=== PATIENT | female | born 1950 | race Caucasian/White ===

== ENCOUNTER 2016-07-20 01:13 | Emergency (ER) | payer OTHER ==
[~2016-07-20] VITALS: Ht 162.6 cm; Wt 65.3 kg
[~2016-07-20 01:13] MED LIST: ADVAIR HFA120 INHALA IH; ASPIR 8181 M1 PO; CEFDINIR300 MG PO; CLOPIDOGREL75 MG PO; DOXYCYCLINE HY100 MG PO; ESCITALOPRAM OX20 MG PO; KLONOPIN0.5 M1 PO; NICORELIEF2 MG BC; NICORETTE4 MG BC; OXYCODONE HCL30 MG PO; OXYCONTIN80 MG PO; PREDNISONE10 MG PO; SPIRIVA1 INHALATI IH; VENTOLIN HFA18 GM IH; tylenol
[2016-07-20] MEDS ORDERED: KEFLEX500 MG PO (03:51)
[2016-07-20 04:16] VITALS: BP 142/86
== END 2016-07-20 04:18 | disposition home or self-care (01) ==
LOC: EXP 01:13 → EME 01:13 → EXP 04:18
PROC: 2Y41X5Z Packing of Nasal Region using Packing Material (ICD-10-PCS; principal; 2016-07-20)
DX: R04.0 Epistaxis (principal); I25.2 Old myocardial infarction; Z86.73 Personal history of transient ischemic attack (TIA), and cerebral infarction without residual deficits; Z79.01 Long term (current) use of anticoagulants; Z95.5 Presence of coronary angioplasty implant and graft
CPT/HCPCS: 99281; 99284

== ENCOUNTER 2016-11-16 19:44 | Inpatient (IN) | payer OTHER ==
[~2016-11-16] VITALS: Ht 165.1 cm; Wt 67.0 kg
[~2016-11-16 19:44] MED LIST changes: +KEFLEX500 MG PO
[2016-11-16 20:18] LABS: HEMATOCRIT 41.7 % (36.0-46.0); MCH 25.2 PG (29.0-34.0); MCHC 30.9 G/DL (30.0-36.0); MCV 81.6 FL (83-99); PLATELET COUNT 207 K/uL (156-360); RBC DIS.WIDTH-CV 13.5 % (11.8-14.6); RBC DIS.WIDTH-SD 39.9 % (39-53); RED BLOOD COUNT 5.11 M/uL (3.80-5.20); WHITE BLOOD COUNT 13.5 K/uL (4.1-10.2)
[2016-11-16 20:26] LABS: CHLORIDE 102 mEq/L (99-109); SODIUM 138 mEq/L (136-147)
[2016-11-16 20:28] LABS: GLUCOSE 130 mg/dL (70-99)
[2016-11-16 20:29] LABS: ANION GAP 15 MEQ/L (2-14); D-DIMER ELISA 0.69 mg/L FEU (< 0.57); PROTHROMBIN TIME 10.5 (9.2-11.2); PTT 25.9 (25-32)
[2016-11-16 20:32] LABS: GFR ESTIMATE (CALCULATED) > 59 mL/min/
[2016-11-16 20:33] LABS: UREA NITROGEN (BUN) 7 mg/dL (9-23)
[2016-11-16 20:38] LABS: TROP-I INTERPRETATION NEGATIVE; TROPONIN-I < 0.01 ng/mL (0.0-0.30)
[2016-11-16] MEDS ORDERED: OXYMORPHONE HCL30 MG PO ×2 (22:01→22:02)
[2016-11-16] MEDS ORDERED: ZOFRAN4 MG PO (22:02)
[2016-11-16] MEDS ORDERED: OPANA ER5 MG PO (22:02)
[2016-11-16 23:50] VITALS: BP 130/74
[2016-11-17] VITALS (7 sets, daily range): BP systolic 91–146; BP diastolic 54–67
[2016-11-17 01:57] LABS: TROP-I INTERPRETATION NEGATIVE; TROPONIN-I 0.03 ng/mL (0.0-0.30)
[2016-11-17 07:48] LABS: HEMATOCRIT 37.4 % (36.0-46.0); MCH 26.1 PG (29.0-34.0); MCHC 31.3 G/DL (30.0-36.0); MCV 83.5 FL (83-99); MEAN PLAT.VOLUME 9.9 uM^3 (9.5-12.4); PLATELET COUNT 228 K/uL (156-360); RBC DIS.WIDTH-CV 13.7 % (11.8-14.6); RBC DIS.WIDTH-SD 41.4 % (39-53); RED BLOOD COUNT 4.48 M/uL (3.80-5.20)
[2016-11-17 08:11] LABS: TROP-I INTERPRETATION NEGATIVE; TROPONIN-I 0.02 ng/mL (0.0-0.30)
[2016-11-17 08:20] LABS: ANION GAP 9 MEQ/L (2-14); CHLORIDE 99 MEQ/L (99-109); GFR ESTIMATE (CALCULATED) > 59 mL/min/; GLUCOSE 140 mg/dL (70-99); HDL CHOLESTEROL 49 MG/DL (Desirable>=50); LDL CHOLESTEROL 96 mg/dL (Desirable<100); NON-HDL CHOLESTEROL 111 mg/dL (Desirable<160); POTASSIUM 4.2 MEQ/L (3.7-5.4); SAMPLE HEMOLYSIS CHECK 0; SAMPLE ICTERIC CHECK 0; SAMPLE LIPEMIA CHECK 0; SODIUM 138 MEQ/L (136-147); TOTAL CHOLESTEROL 160 mg/dL (Desirable<200); TRIGLYCERIDES 75 MG/DL (Normal: <150); UREA NITROGEN (BUN) 9 mg/dL (9-23)
[2016-11-18 03:45] VITALS: BP 110/64
[2016-11-18 05:59] LABS: EOSINOPHIL (%) 0 % (0-5); HEMATOCRIT 34.2 % (36.0-46.0); IMMATURE GRANULOCYTE (%) 0.7 % (0.0-0.7); IMMATURE GRANULOCYTE COUNT 0.1 K/uL; LYMPHOCYTE COUNT 2.6 K/uL (1.0-2.8); MCH 25.3 PG (29.0-34.0); MCHC 30.4 G/DL (30.0-36.0); MCV 83.2 FL (83-99); MEAN PLAT.VOLUME 9.6 uM^3 (9.5-12.4); MONOCYTE (%) 5.7 % (3-12); MONOCYTE COUNT 0.6 K/uL (0-0.8); PLATELET COUNT 208 K/uL (156-360); RBC DIS.WIDTH-CV 13.7 % (11.8-14.6); RBC DIS.WIDTH-SD 41.6 % (39-53); RED BLOOD COUNT 4.11 M/uL (3.80-5.20); WHITE BLOOD COUNT 10.2 K/uL (4.1-10.2)
[2016-11-18 06:52] LABS: CHLORIDE 108 mEq/L (99-109); POTASSIUM 4.1 mEq/L (3.7-5.4); SODIUM 142 mEq/L (136-147)
[2016-11-18 06:54] LABS: GLUCOSE 130 mg/dL (70-99)
[2016-11-18 06:55] LABS: ANION GAP 9 MEQ/L (2-14)
[2016-11-18 06:57] LABS: GFR ESTIMATE (CALCULATED) > 59 mL/min/
[2016-11-18 06:58] LABS: UREA NITROGEN (BUN) 14 mg/dL (9-23)
[2016-11-18 07:22] VITALS: BP 155/68
[2016-11-18 07:38] LABS: POINT-OF-CARE METER ID UU14188625
[2016-11-18 09:06] LABS: INTERNAL CONTROL VALID? YES
[2016-11-18 11:10] VITALS: BP 160/68
[2016-11-18 11:35] LABS: POINT-OF-CARE METER ID UU14174225
[2016-11-18 15:51] VITALS: BP 146/63
[2016-11-18 17:45] LABS: POINT-OF-CARE METER ID UU14188625
[2016-11-18 19:55] VITALS: BP 153/70
[2016-11-18 23:25] VITALS: BP 184/79
[2016-11-19 03:23] VITALS: BP 177/78
[2016-11-19 07:34] VITALS: BP 173/79
[2016-11-19 07:46] LABS: EOSINOPHIL (%) 0.5 % (0-5); EOSINOPHIL COUNT 0.1 K/uL (0-0.3); HEMATOCRIT 34.2 % (36.0-46.0); IMMATURE GRANULOCYTE (%) 0.3 % (0.0-0.7); INSTRUMENT ABS NEUTROPHIL CT 4.8 K/uL; LYMPHOCYTE COUNT 4.2 K/uL (1.0-2.8); MCH 25.4 PG (29.0-34.0); MCHC 30.4 G/DL (30.0-36.0); MCV 83.6 FL (83-99); MEAN PLAT.VOLUME 9.8 uM^3 (9.5-12.4); MONOCYTE COUNT 0.7 K/uL (0-0.8); NEUTROPHIL COUNT 4.8 K/uL (1.8-6.4); PLATELET COUNT 239 K/uL (156-360); RBC DIS.WIDTH-CV 13.7 % (11.8-14.6); RBC DIS.WIDTH-SD 41.8 % (39-53); RED BLOOD COUNT 4.09 M/uL (3.80-5.20); WHITE BLOOD COUNT 9.8 K/uL (4.1-10.2)
[2016-11-19 08:40] LABS: ANION GAP 12 MEQ/L (2-14); CHLORIDE 104 MEQ/L (99-109); GFR ESTIMATE (CALCULATED) > 59 mL/min/; POTASSIUM 3.9 MEQ/L (3.7-5.4); SAMPLE HEMOLYSIS CHECK 0; SAMPLE ICTERIC CHECK 0; SAMPLE LIPEMIA CHECK 0; SODIUM 143 MEQ/L (136-147); UREA NITROGEN (BUN) 14 mg/dL (9-23)
[2016-11-19 08:41] LABS: GLUCOSE 81 mg/dL (70-99)
[2016-11-19 10:54] VITALS: BP 136/75
[2016-11-19] MEDS ORDERED: CEFTIN500 MG PO (12:51)
[2016-11-19] MEDS ORDERED: PROAIR RESPICL90 MCG IH (12:51)
[2016-11-19] MEDS ORDERED: ASPIR-LOW81 MG PO (12:52)
[2016-11-19] MEDS ORDERED: PRAVASTATIN SOD80 MG PO (12:52)
[2016-11-19] MEDS ORDERED: AMLODIPINE BESYL5 MG PO (12:52)
[2016-11-19] MEDS ORDERED: SPIRIVA1 INHALATI IH (12:53)
[2016-11-19] MEDS ORDERED: PREDNISONE20 MG PO (12:53)
== END 2016-11-19 13:48 | disposition home or self-care (01) | DRG 871 ==
LOC: EME 19:44 → EDOF 21:29 → 5SOUTH 21:29
PROVIDERS: Emergency Medicine; Hospitalist; Internal Medicine
DX: A41.9 Sepsis, unspecified organism (principal); J44.1 Chronic obstructive pulmonary disease with (acute) exacerbation; J18.9 Pneumonia, unspecified organism; Z99.81 Dependence on supplemental oxygen; I44.7 Left bundle-branch block, unspecified; F41.9 Anxiety disorder, unspecified; R07.9 Chest pain, unspecified; I25.10 Atherosclerotic heart disease of native coronary artery without angina pectoris; Z86.73 Personal history of transient ischemic attack (TIA), and cerebral infarction without residual deficits; Z87.442 Personal history of urinary calculi; I25.2 Old myocardial infarction; Z87.891 Personal history of nicotine dependence; Z95.5 Presence of coronary angioplasty implant and graft; E78.5 Hyperlipidemia, unspecified
CPT/HCPCS: 71010; 71275; 80048; 80061; 82948; 83605; 84484; 85025; 85027; 85379; 85610; 85730; 87040; 87070; 87205; 87449; 93005; 93306; 94640; 94799; 99202; 99281; 99285; J0696; J1644; J2920; J3475; J7030; J7050; J7512

== ENCOUNTER 2017-01-22 03:29 | Inpatient (IN) | payer OTHER ==
[~2017-01-22] VITALS: Ht 167.6 cm; Wt 63.4 kg
[~2017-01-22 03:29] MED LIST changes: +AMLODIPINE BESYL5 MG PO; +ASPIR-LOW81 MG PO; +CEFTIN500 MG PO; +OPANA IR5 MG PO; +OXYMORPHONE HCL30 MG PO; +PRAVASTATIN SOD80 MG PO; +PREDNISONE20 MG PO; +PROAIR RESPICL90 MCG IH; +ZOFRAN4 MG PO
[2017-01-22 04:27] LABS: BASOPHIL COUNT 0.1 K/uL (0-0.1); EOSINOPHIL (%) 0.9 % (0-5); EOSINOPHIL COUNT 0.1 K/uL (0-0.3); HEMATOCRIT 44.8 % (36.0-46.0); IMMATURE GRANULOCYTE (%) 0.4 % (0.0-0.7); INSTRUMENT ABS NEUTROPHIL CT 8.2 K/uL; LYMPHOCYTE COUNT 2.2 K/uL (1.0-2.8); MCH 25.3 PG (29.0-34.0); MCHC 30.6 G/DL (30.0-36.0); MCV 82.7 FL (83-99); MEAN PLAT.VOLUME 9.3 uM^3 (9.5-12.4); MONOCYTE (%) 6.2 % (3-12); MONOCYTE COUNT 0.7 K/uL (0-0.8); NEUTROPHIL (%) 72.5 % (45-76); NEUTROPHIL COUNT 8.2 K/uL (1.8-6.4); PLATELET COUNT 184 K/uL (156-360); RBC DIS.WIDTH-CV 14.6 % (11.8-14.6); RBC DIS.WIDTH-SD 44.4 % (39-53); RED BLOOD COUNT 5.42 M/uL (3.80-5.20); WHITE BLOOD COUNT 11.2 K/uL (4.1-10.2)
[2017-01-22 04:39] LABS: CHLORIDE 104 mEq/L (99-109); POTASSIUM 3.4 mEq/L (3.7-5.4); SODIUM 143 mEq/L (136-147)
[2017-01-22 04:41] LABS: GLUCOSE 155 mg/dL (70-99)
[2017-01-22 04:42] LABS: ANION GAP 13 MEQ/L (2-14)
[2017-01-22 04:43] LABS: TOTAL BILIRUBIN 0.4 mg/dL (0.0-1.0)
[2017-01-22 04:44] LABS: ALKALINE PHOSPHATASE 90 IU/L (3-129)
[2017-01-22 04:45] LABS: GFR ESTIMATE (CALCULATED) > 59 mL/min/
[2017-01-22 04:46] LABS: UREA NITROGEN (BUN) 10 mg/dL (9-23)
[2017-01-22 04:54] LABS: TROP-I INTERPRETATION NEGATIVE; TROPONIN-I 0.04 ng/mL (0.0-0.30)
[2017-01-22 07:30] LABS: ADD MIUA? NO; BILIRUBIN NEGATIVE; BLOOD NEGATIVE; COLOR STRAW ((YELLOW)); GLUCOSE (STRIP) 50; KETONES NEGATIVE; LEUKOCYTES NEGATIVE; NITRITE NEGATIVE; PROTEIN (STRIP) NEGATIVE; SPECIFIC GRAVITY 1.005 (1.000-1.030); UCUL ADDED? NO; UROBILINOGEN 0.2 MG/DL (0.2-1.0)
[2017-01-22 10:46] VITALS: BP 128/59
[2017-01-22 11:45] VITALS: BP 178/67
[2017-01-22 12:03] LABS: BASE EXCESS -4.5 mEq/L (-3 to +3); BICARBONATE 20.2 mEq/L (22-26); CARBOXY HGB 1.7 % (0-5); METHEMOGLOBIN 1.7 % (0-1.5); PO2 48 mm Hg (80-100); pH 7.37 (7.35-7.45)
[2017-01-22 12:05] LABS: COMMENTS - BLOOD GASES C+; PCO2 35 mm Hg (35-45); SITE RR
[2017-01-22 12:06] LABS: DEVICE RA; TOTAL RESP RATE 22 resp/min
[2017-01-22 12:31] LABS: HEMATOCRIT 41.2 % (36.0-46.0); MCH 25.6 PG (29.0-34.0); MCHC 30.1 G/DL (30.0-36.0); MCV 85.1 FL (83-99); MEAN PLAT.VOLUME 9.9 uM^3 (9.5-12.4); PLATELET COUNT 185 K/uL (156-360); RBC DIS.WIDTH-CV 14.7 % (11.8-14.6); RBC DIS.WIDTH-SD 45.9 % (39-53); RED BLOOD COUNT 4.84 M/uL (3.80-5.20); WHITE BLOOD COUNT 2.8 K/uL (4.1-10.2)
[2017-01-22 13:00] LABS: INFLUENZA A VIRAL ANTIGEN NEGATIVE; INFLUENZA B VIRAL ANTIGEN NEGATIVE
[2017-01-22 13:21] LABS: TROP-I INTERPRETATION NEGATIVE; TROPONIN-I 0.08 ng/mL (0.0-0.30)
[2017-01-22 13:25] LABS: ANION GAP 14 MEQ/L (2-14); CHLORIDE 108 MEQ/L (99-109); GFR ESTIMATE (CALCULATED) > 59 mL/min/; GLUCOSE 131 mg/dL (70-99); POTASSIUM 3.6 MEQ/L (3.7-5.4); SAMPLE HEMOLYSIS CHECK 0; SAMPLE ICTERIC CHECK 0; SAMPLE LIPEMIA CHECK 0; SODIUM 140 MEQ/L (136-147); UREA NITROGEN (BUN) 8 mg/dL (9-23)
[2017-01-22 13:46] LABS: METH RESISTANT S AUREUS PCR NEGATIVE (NEGATIVE)
[2017-01-22 13:53] LABS: PROBE CHECK PASS; SPECIMEN PROCESSING CONTROL PASS
[2017-01-22 14:01] VITALS: BP 129/65
[2017-01-22 15:17] VITALS: BP 105/60
[2017-01-22] MEDS ORDERED: OPANA ER5 MG PO (15:19)
[2017-01-22] MEDS ORDERED: LIPITOR10 MG PO (15:20)
[2017-01-22] MEDS ORDERED: ATARAX,VISTARIL25 MG PO (15:22)
[2017-01-22 19:20] VITALS: BP 137/65
[2017-01-23 00:15] VITALS: BP 142/67
[2017-01-23 04:20] VITALS: BP 160/76
[2017-01-23 05:19] LABS: CHLORIDE 108 mEq/L (99-109); SODIUM 136 mEq/L (136-147)
[2017-01-23 05:20] LABS: GLUCOSE 153 mg/dL (70-99)
[2017-01-23 05:22] LABS: ANION GAP 7 MEQ/L (2-14)
[2017-01-23 05:24] LABS: GFR ESTIMATE (CALCULATED) > 59 mL/min/
[2017-01-23 05:25] LABS: UREA NITROGEN (BUN) 9 mg/dL (9-23)
[2017-01-23 05:45] LABS: POTASSIUM 4.4 mEq/L (3.7-5.4)
[2017-01-23 06:44] LABS: HEMATOCRIT 32.3 % (36.0-46.0); MCH 25.8 PG (29.0-34.0); MCV 83.2 FL (83-99); MEAN PLAT.VOLUME 9.8 uM^3 (9.5-12.4); PLATELET COUNT 156 K/uL (156-360); RBC DIS.WIDTH-CV 14.9 % (11.8-14.6); RBC DIS.WIDTH-SD 45.4 % (39-53); RED BLOOD COUNT 3.88 M/uL (3.80-5.20); WHITE BLOOD COUNT 11.4 K/uL (4.1-10.2)
[2017-01-23 07:57] VITALS: BP 136/74
[2017-01-23 10:06] LABS: INTERNAL CONTROL VALID? YES
[2017-01-23 11:43] VITALS: BP 135/70
[2017-01-23 14:57] VITALS: BP 172/82
[2017-01-23 19:30] VITALS: BP 146/80
[2017-01-24 00:05] VITALS: BP 140/80
[2017-01-24 04:10] VITALS: BP 160/82
[2017-01-24 05:43] LABS: HEMATOCRIT 35.5 % (36.0-46.0); MCH 26.1 PG (29.0-34.0); MCHC 31.3 G/DL (30.0-36.0); MCV 83.3 FL (83-99); MEAN PLAT.VOLUME 9.9 uM^3 (9.5-12.4); PLATELET COUNT 197 K/uL (156-360); RBC DIS.WIDTH-CV 15.1 % (11.8-14.6); RED BLOOD COUNT 4.26 M/uL (3.80-5.20); WHITE BLOOD COUNT 11.2 K/uL (4.1-10.2)
[2017-01-24 06:40] LABS: ANION GAP 9 MEQ/L (2-14); CHLORIDE 104 MEQ/L (99-109); GFR ESTIMATE (CALCULATED) > 59 mL/min/; GLUCOSE 86 mg/dL (70-99); POTASSIUM 3.6 MEQ/L (3.7-5.4); SAMPLE HEMOLYSIS CHECK 0; SAMPLE ICTERIC CHECK 0; SAMPLE LIPEMIA CHECK 0; SODIUM 143 MEQ/L (136-147); UREA NITROGEN (BUN) 11 mg/dL (9-23)
[2017-01-24 07:48] VITALS: BP 137/78
[2017-01-24 12:50] VITALS: BP 124/58
[2017-01-24 16:50] VITALS: BP 179/90
[2017-01-24 19:20] VITALS: BP 148/70
[2017-01-25 00:15] VITALS: BP 150/82
[2017-01-25 04:00] VITALS: BP 148/80
[2017-01-25 08:18] VITALS: BP 100/62; BP 170/80
[2017-01-25] MEDS ORDERED: DOCUSATE SODIU100 MG PO (11:50)
[2017-01-25] MEDS ORDERED: AUGMENTIN875 MG PO (11:50)
[2017-01-25] MEDS ORDERED: PREDNISONE5 MG PO (11:50)
[2017-01-25] MEDS ORDERED: MUCINEX600 MG PO (11:50)
[2017-01-25 12:03] VITALS: BP 128/72
[2017-01-25 20:26] LABS: M. pneumoniae Ab, IgG 1.28 (<=0.90)
== END 2017-01-25 15:52 | disposition home health service (06) | DRG 871 ==
LOC: EME → EDBD 03:29 → EDOF 07:24 → 5SOUTH 07:24 → 4EAST 07:24 → ENRESERV 07:26 → EDOF 07:54 → ENRESERV 08:00 → 5SOUTH 09:20 → ENRESERV 12:26 → 4EAST 13:33
PROVIDERS: Emergency Medicine; Internal Medicine; Physician Assistant
DX: A41.9 Sepsis, unspecified organism (principal); J18.9 Pneumonia, unspecified organism; J96.01 Acute respiratory failure with hypoxia; J44.0 Chronic obstructive pulmonary disease with (acute) lower respiratory infection; J44.1 Chronic obstructive pulmonary disease with (acute) exacerbation; E87.2 Acidosis; G89.4 Chronic pain syndrome; Z87.891 Personal history of nicotine dependence; I25.10 Atherosclerotic heart disease of native coronary artery without angina pectoris; Z95.5 Presence of coronary angioplasty implant and graft; Z99.81 Dependence on supplemental oxygen; Z87.442 Personal history of urinary calculi; Z87.01 Personal history of pneumonia (recurrent); Z86.73 Personal history of transient ischemic attack (TIA), and cerebral infarction without residual deficits; Z79.82 Long term (current) use of aspirin; I25.2 Old myocardial infarction
CPT/HCPCS: 36600; 71010; 71275; 80048; 80048 91; 80053; 81003; 82803; 83605; 83880; 84484; 85025; 85027; 85379; 86738 90; 87040; 87081; 87086; 87449; 87502; 87641; 93005; 94640; 94640 76; 94799; 99202; 99281; 99285; J0456; J0692; J0696; J1650; J2543; J2920; J3370; J7030; J7040; J7050; J7120; J7512

== ENCOUNTER → 2017-04-05 | Outpatient (CLI) | payer OTHER ==
[~2017-04-05] VITALS: Ht 162.6 cm; Wt 68.0 kg
[~2017-04-05] MED LIST changes: +ATARAX,VISTARIL25 MG PO; +AUGMENTIN875 MG PO; +DOCUSATE SODIU100 MG PO; +LIPITOR10 MG PO; +MUCINEX600 MG PO; +OPANA ER5 MG PO; +PREDNISONE5 MG PO
== END | disposition home or self-care (01) ==
LOC: AMB 12:30
PROC: 0DJ0XZZ Inspection of Upper Intestinal Tract, External Approach (ICD-10-PCS; principal; 2017-04-05)
DX: R93.9 Diagnostic imaging inconclusive due to excess body fat of patient (principal); Z53.09 Procedure and treatment not carried out because of other contraindication; Z87.01 Personal history of pneumonia (recurrent)
CPT/HCPCS: 99213; J0330; J2250; J2405; J3010

== ENCOUNTER → 2017-04-06 | Outpatient (CLI) | payer OTHER ==
[~2017-04-06] VITALS: Ht 162.6 cm; Wt 68.0 kg
== END | disposition home or self-care (01) ==
LOC: AMB 11:15
PROC: 0DJ08ZZ Inspection of Upper Intestinal Tract, Via Natural or Artificial Opening Endoscopic (ICD-10-PCS; principal; 2017-04-06)
DX: R93.3 Abnormal findings on diagnostic imaging of other parts of digestive tract (principal); R59.0 Localized enlarged lymph nodes; Z86.19 Personal history of other infectious and parasitic diseases; Z53.09 Procedure and treatment not carried out because of other contraindication; Z79.02 Long term (current) use of antithrombotics/antiplatelets; Z79.82 Long term (current) use of aspirin; Z87.891 Personal history of nicotine dependence; R13.10 Dysphagia, unspecified; K21.9 Gastro-esophageal reflux disease without esophagitis; K62.5 Hemorrhage of anus and rectum; J44.9 Chronic obstructive pulmonary disease, unspecified; Z87.01 Personal history of pneumonia (recurrent); I25.10 Atherosclerotic heart disease of native coronary artery without angina pectoris; Z86.73 Personal history of transient ischemic attack (TIA), and cerebral infarction without residual deficits; G89.29 Other chronic pain; Z79.891 Long term (current) use of opiate analgesic; F32.9 Major depressive disorder, single episode, unspecified; Z87.442 Personal history of urinary calculi
CPT/HCPCS: C1726; J0330; J1100; J2405

== ENCOUNTER 2017-11-09 17:30 | Emergency (ER) | payer OTHER ==
[~2017-11-09] VITALS: Ht 162.6 cm; Wt 60.9 kg
[2017-11-09 18:20] LABS: APPEARANCE CLEAR ((CLEAR)); BILIRUBIN NEGATIVE; BLOOD NEGATIVE; COLOR YELLOW ((YELLOW)); GLUCOSE (STRIP) NEGATIVE; KETONES NEGATIVE; LEUKOCYTES NEGATIVE; NITRITE NEGATIVE; PROTEIN (STRIP) 30; SPECIFIC GRAVITY 1.011 (1.000-1.030); UCUL ADDED? NO
[2017-11-09 18:34] LABS: HEMATOCRIT 37.2 % (36.0-46.0); HEMOGLOBIN 12.5 G/DL (11.9-15.5); MCH 26.4 PG (29.0-34.0); MCHC 33.6 G/DL (30.0-36.0); MCV 78.5 FL (83-99); PLATELET COUNT 250 K/uL (156-360); RBC DIS.WIDTH-CV 12.6 % (11.8-14.6); RBC DIS.WIDTH-SD 35.4 % (39-53); RED BLOOD COUNT 4.74 M/uL (3.80-5.20); WHITE BLOOD COUNT 8.7 K/uL (4.1-10.2)
[2017-11-09 18:42] LABS: CHLORIDE 91 mEq/L (99-109); POTASSIUM 2.7 mEq/L (3.7-5.4); SODIUM 135 mEq/L (136-147)
[2017-11-09 18:44] LABS: GLUCOSE 117 mg/dL (70-99); TOTAL PROTEIN 7.1 g/dL (6.4-8.3)
[2017-11-09 18:46] LABS: TOTAL BILIRUBIN 0.6 mg/dL (0.0-1.0)
[2017-11-09 18:47] LABS: ALKALINE PHOSPHATASE 95 IU/L (3-129)
[2017-11-09 18:48] LABS: CREATININE 0.7 mg/dL (0.6-1.3); GFR ESTIMATE (CALCULATED) > 59 mL/min/
[2017-11-09 18:49] LABS: AST (GOT) 13 IU/L (2-34); UREA NITROGEN (BUN) 7 mg/dL (9-23)
[2017-11-09 18:51] LABS: ALT (GPT) 9 IU/L (3-49)
[2017-11-09 19:50] LABS: LIPASE < 3.0 U/L (1.0-51.0)
[2017-11-09] MEDS ORDERED: MIRALAX17 GM PO (19:52)
[2017-11-09 20:04] VITALS: BP 160/89
== END 2017-11-09 20:04 | disposition home or self-care (01) ==
LOC: EME 17:30
PROVIDERS: Emergency Medicine
DX: R10.13 Epigastric pain (principal); J44.9 Chronic obstructive pulmonary disease, unspecified; E78.5 Hyperlipidemia, unspecified; Z87.442 Personal history of urinary calculi; I25.2 Old myocardial infarction; F41.9 Anxiety disorder, unspecified; Z86.73 Personal history of transient ischemic attack (TIA), and cerebral infarction without residual deficits; Z95.5 Presence of coronary angioplasty implant and graft; Z87.891 Personal history of nicotine dependence; Z88.1 Allergy status to other antibiotic agents
CPT/HCPCS: 74177; 80053; 81003; 83690; 85027; 99281; 99285; J2405

== ENCOUNTER 2017-12-10 08:52 | Emergency (ER) | payer OTHER ==
[~2017-12-10] VITALS: Ht 162.6 cm; Wt 59.1 kg
[~2017-12-10 08:52] MED LIST changes: +MIRALAX17 GM PO; +NORVASC10 MG PO; +OXYMORPHONE HCL20 MG PO; +PREDNISONE10 M1 PO; +PROTONIX40 MG PO; +ZITHROMAX250 MG PO
[2017-12-10 09:37] LABS: BASOPHIL (%) 0.1 % (0-1); EOSINOPHIL (%) 0.5 % (0-5); EOSINOPHIL COUNT 0.1 K/uL (0-0.3); HEMATOCRIT 41.9 % (36.0-46.0); HEMOGLOBIN 13.5 G/DL (11.9-15.5); IMMATURE GRANULOCYTE (%) 1.4 % (0.0-0.7); LYMPHOCYTE (%) 18.9 % (15-42); MCH 25.9 PG (29.0-34.0); MCHC 32.2 G/DL (30.0-36.0); MCV 80.3 FL (83-99); MONOCYTE (%) 7.5 % (3-12); MONOCYTE COUNT 1.6 K/uL (0-0.8); NEUTROPHIL (%) 71.6 % (45-76); NEUTROPHIL COUNT 15.1 K/uL (1.8-6.4); PLATELET COUNT 365 K/uL (156-360); RBC DIS.WIDTH-CV 14.1 % (11.8-14.6); RBC DIS.WIDTH-SD 40.7 % (39-53); RED BLOOD COUNT 5.22 M/uL (3.80-5.20); WHITE BLOOD COUNT 21.1 K/uL (4.1-10.2)
[2017-12-10 09:47] LABS: ALBUMIN 3.5 g/dL (3.2-4.8)
[2017-12-10 09:48] LABS: CHLORIDE 96 mEq/L (99-109); POTASSIUM 2.8 mEq/L (3.7-5.4); SODIUM 139 mEq/L (136-147)
[2017-12-10 09:50] LABS: GLUCOSE 150 mg/dL (70-99)
[2017-12-10 09:52] LABS: TOTAL BILIRUBIN 0.2 mg/dL (0.0-1.0)
[2017-12-10 09:53] LABS: ALKALINE PHOSPHATASE 84 IU/L (3-129)
[2017-12-10 09:54] LABS: CREATININE 0.9 mg/dL (0.6-1.3); GFR ESTIMATE (CALCULATED) > 59 mL/min/
[2017-12-10 09:55] LABS: AST (GOT) 13 IU/L (2-34); UREA NITROGEN (BUN) 27 mg/dL (9-23)
[2017-12-10 09:56] LABS: ALT (GPT) 16 IU/L (3-49)
[2017-12-10 09:57] LABS: LIPASE 4 U/L (1.0-51.0)
[2017-12-10 11:33] LABS: APPEARANCE CLEAR ((CLEAR)); BILIRUBIN NEGATIVE; BLOOD SMALL; COLOR STRAW ((YELLOW)); GLUCOSE (STRIP) 50; KETONES NEGATIVE; LEUKOCYTES NEGATIVE; NITRITE NEGATIVE; PROTEIN (STRIP) NEGATIVE; SPECIFIC GRAVITY 1.029 (1.000-1.030); UROBILINOGEN 0.2 MG/DL (0.2-1.0)
[2017-12-10 11:39] LABS: BACTERIA NONE SEEN /HPF; EPITHELIAL CELLS RARE /HPF; MUCUS NONE SEEN /LPF; UCUL ADDED? NO; WHITE BLOOD CELLS 0-5 /HPF (0-5)
[2017-12-10 15:42] VITALS: BP 97/71
== END 2017-12-10 16:59 | disposition home or self-care (01) ==
LOC: EME 08:52
PROVIDERS: Emergency Medicine
DX: K52.9 Noninfective gastroenteritis and colitis, unspecified (principal); K80.20 Calculus of gallbladder without cholecystitis without obstruction; J44.9 Chronic obstructive pulmonary disease, unspecified; R10.9 Unspecified abdominal pain; I25.2 Old myocardial infarction; Z86.73 Personal history of transient ischemic attack (TIA), and cerebral infarction without residual deficits; Z95.5 Presence of coronary angioplasty implant and graft; Z79.82 Long term (current) use of aspirin; Z87.891 Personal history of nicotine dependence
CPT/HCPCS: 74177; 76705; 80053; 81003; 83690; 85025; 93005; 99281; 99285; J7030

== ENCOUNTER 2018-02-12 19:06 | Emergency (ER) | payer OTHER ==
[~2018-02-12] VITALS: Ht 162.6 cm; Wt 57.5 kg
[2018-02-12 19:51] LABS: HEMOGLOBIN 11.6 G/DL (11.9-15.5); MCH 26.2 PG (29.0-34.0); MCHC 32.2 G/DL (30.0-36.0); MCV 81.3 FL (83-99); PLATELET COUNT 208 K/uL (156-360); RBC DIS.WIDTH-CV 14.3 % (11.8-14.6); RBC DIS.WIDTH-SD 42.4 % (39-53); RED BLOOD COUNT 4.43 M/uL (3.80-5.20); WHITE BLOOD COUNT 11.6 K/uL (4.1-10.2)
[2018-02-12 20:11] LABS: CHLORIDE 100 mEq/L (99-109); POTASSIUM 3.8 mEq/L (3.7-5.4); SODIUM 136 mEq/L (136-147)
[2018-02-12 20:12] LABS: TROP-I INTERPRETATION NEGATIVE; TROPONIN-I < 0.01 ng/mL (0.0-0.30)
[2018-02-12 20:13] LABS: GLUCOSE 118 mg/dL (70-99)
[2018-02-12 20:17] LABS: CREATININE 0.8 mg/dL (0.6-1.3); GFR ESTIMATE (CALCULATED) > 59 mL/min/
[2018-02-12 20:18] LABS: UREA NITROGEN (BUN) 12 mg/dL (9-23)
[2018-02-12 21:39] VITALS: BP 125/75
== END 2018-02-12 21:40 | disposition home or self-care (01) ==
LOC: EME 19:06
DX: J44.1 Chronic obstructive pulmonary disease with (acute) exacerbation (principal); E78.5 Hyperlipidemia, unspecified; F41.9 Anxiety disorder, unspecified; F32.9 Major depressive disorder, single episode, unspecified; I25.2 Old myocardial infarction; Z79.82 Long term (current) use of aspirin; Z79.51 Long term (current) use of inhaled steroids; Z86.73 Personal history of transient ischemic attack (TIA), and cerebral infarction without residual deficits; Z87.442 Personal history of urinary calculi; Z87.891 Personal history of nicotine dependence; Z95.5 Presence of coronary angioplasty implant and graft; Z88.8 Allergy status to other drugs, medicaments and biological substances
CPT/HCPCS: 71046; 80048; 84484; 85027; 93005; 94640; 99281; 99284; J7512